=== PATIENT | female | born 1975 | race Caucasian/White ===

== ENCOUNTER 2016-09-11 19:17 | Emergency (ER) | payer MEDICARE, OTHER | END 2016-09-11 22:27 | disposition home or self-care (01) | LOC: CED 19:17 | DX: T78.3XXA Angioneurotic edema, initial encounter (principal); I10 Essential (primary) hypertension; E03.9 Hypothyroidism, unspecified | CPT/HCPCS: 36415; 96374; 96375; 99285; J1200; J2930 ==